=== PATIENT | male | born 1955 | race Caucasian/White ===

== ENCOUNTER 2019-08-26 16:00 | Outpatient (CLI) | payer MEDICARE | END 2019-08-26 16:01 | disposition home or self-care (01) | LOC: SLEEPLAB 16:00 | PROVIDERS: ATTEND Family Medicine | DX: G47.33 Obstructive sleep apnea (adult) (pediatric) (principal); G47.10 Hypersomnia, unspecified; R53.83 Other fatigue; R51 Headache; E66.9 Obesity, unspecified; R06.83 Snoring; F41.9 Anxiety disorder, unspecified; G47.00 Insomnia, unspecified; F32.9 Major depressive disorder, single episode, unspecified; I10 Essential (primary) hypertension; G47.419 Narcolepsy without cataplexy; Z68.29 Body mass index [BMI] 29.0-29.9, adult | CPT/HCPCS: 95801 ==

== ENCOUNTER 2019-08-30 14:46 | Outpatient (CLI) | payer MEDICARE ==
--- NOTE | 2019-08-30 15:35 | RAD ---
XR Sacrum and Coccyx STANDARD History: Coccydynia Comparison: Exam 2011 Findings: No acute fracture. Mild narrowing of the SI joints. Pubic symphysis is normal. Advanced degenerative disc space disease at L5/S1. Possible pars interarticularis defects at L5. No l isthesis. Impression: No acute fracture of the sacrum or coccyx.
== END 2019-08-30 14:47 | disposition home or self-care (01) ==
LOC: BICRAD 14:46
PROVIDERS: ATTEND Family Medicine
DX: M53.3 Sacrococcygeal disorders, not elsewhere classified (principal)
CPT/HCPCS: 72220

== ENCOUNTER 2019-10-18 19:00 | Outpatient (CLI) | payer MEDICARE | END 2019-10-18 19:01 | disposition home or self-care (01) | LOC: SLEEPLAB 19:00 | PROVIDERS: ATTEND Family Medicine | DX: G47.33 Obstructive sleep apnea (adult) (pediatric) (principal); G47.10 Hypersomnia, unspecified; G47.419 Narcolepsy without cataplexy; G47.9 Sleep disorder, unspecified; R40.0 Somnolence; R53.83 Other fatigue; R51 Headache; E66.9 Obesity, unspecified; R06.83 Snoring; F41.9 Anxiety disorder, unspecified; G47.00 Insomnia, unspecified; F32.9 Major depressive disorder, single episode, unspecified; I10 Essential (primary) hypertension; Z68.29 Body mass index [BMI] 29.0-29.9, adult | CPT/HCPCS: 95811 ==

== ENCOUNTER 2020-08-16 08:11 | Outpatient (CLI) | payer MEDICARE | END 2020-08-16 08:12 | disposition home or self-care (01) | LOC: BICMRI 08:11 | PROVIDERS: ATTEND Nurse Practitioner Family | DX: M47.26 Other spondylosis with radiculopathy, lumbar region (principal); M48.061 Spinal stenosis, lumbar region without neurogenic claudication | CPT/HCPCS: 72148 ==

== ENCOUNTER 2020-10-31 14:26 | Outpatient (CLI) | payer MEDICARE | END 2020-10-31 14:27 | disposition home or self-care (01) | LOC: BICCT 14:26 | PROVIDERS: ATTEND Orthopaedic Surgery | DX: M48.061 Spinal stenosis, lumbar region without neurogenic claudication (principal); M51.26 Other intervertebral disc displacement, lumbar region; M43.16 Spondylolisthesis, lumbar region; M43.17 Spondylolisthesis, lumbosacral region; M43.18 Spondylolisthesis, sacral and sacrococcygeal region; M48.07 Spinal stenosis, lumbosacral region; M48.08 Spinal stenosis, sacral and sacrococcygeal region; M47.816 Spondylosis without myelopathy or radiculopathy, lumbar region; M47.817 Spondylosis without myelopathy or radiculopathy, lumbosacral region | CPT/HCPCS: 72110; 72131; 72195 ==

== ENCOUNTER 2020-11-14 09:13 | Outpatient (CLI) | payer MEDICARE | END 2020-11-14 09:14 | disposition home or self-care (01) | LOC: BICRAD 09:13 | PROVIDERS: ATTEND Family Medicine | DX: Z01.818 Encounter for other preprocedural examination (principal) | CPT/HCPCS: 71046 ==

== ENCOUNTER 2022-05-28 12:18 | Outpatient (CLI) | payer MEDICARE | END 2022-05-28 12:19 | disposition home or self-care (01) | LOC: MRI 12:18 | PROVIDERS: ATTEND Anesthesiology Pain Medicine | DX: M47.26 Other spondylosis with radiculopathy, lumbar region (principal); M51.16 Intervertebral disc disorders with radiculopathy, lumbar region; M48.061 Spinal stenosis, lumbar region without neurogenic claudication; M47.817 Spondylosis without myelopathy or radiculopathy, lumbosacral region; M48.07 Spinal stenosis, lumbosacral region; Z98.890 Other specified postprocedural states | CPT/HCPCS: 72120; 72148 ==